=== PATIENT | female | born 1970 | race Caucasian/White ===

== ENCOUNTER 2024-03-26 19:14 | Emergency (ER) | payer OTHER, SELFPAY ==
[2024-03-26 19:16] VITALS: BP 109/88
[2024-03-26 19:31] LABS: Urine Albumin 3+ (Neg - Trace); Urine Bilirubin Negative (Negative); Urine Character Slightly Cloudy (Clear); Urine Color Red; Urine Glucose Negative (Negative); Urine Ketone Trace (Negative); Urine Leukocyte 2+ (Negative); Urine Nitrite Negative (Negative); Urine Occult Blood 4+ (Negative); Urine Specific Gravity 1.015 (<1.030); Urine Urobilinogen Negative (Neg - 1+)
[2024-03-26 19:33] LABS: % Basophils 0.5 % (0-2); % Eosinophils 1.2 % (0-6); % Immature Granulocytes 0.3 % (0-0.5); % Lymphocytes 22.9 % (20.5-51.1); % Monocytes 8.3 % (1.7-9.3); % Neutrophils 66.8 % (42.2-75.2); Absolute Basophils 0.1 10^3/uL (0-0.2); Absolute Eosinophils 0.1 10^3/uL (0-0.7); Absolute Lymphocytes 2.5 10^3/uL (1.2-3.4); Absolute Monocytes 0.9 10^3/uL (0.1-0.6); Absolute Neutrophils 7.2 10^3/uL (1.4-6.5); Hematocrit 37.1 % (37.0-47.0); Hemoglobin 12.9 g/dL (12.0-16.0); Mean Corp Hgb Conc. 34.8 g/dL (33.0-37.0); Mean Corpuscular Hgb 31.2 pg (27.0-31.0); Mean Corpuscular Volume 89.8 fL (81.0-99.0); Mean Platelet Volume 9.1 fL (7.4-10.4); Nucleated Red Blood Cells % 0 %; Platelet Count 342 10^3/uL (130-400); Red Blood Cell Count 4.13 10^6/uL (4.20-5.40); Red Cell Dist. Width 12.8 % (11.5-14.5); White Blood Cell Count 10.7 10^3/uL (4.8-10.8)
[2024-03-26 19:38] LABS: Urine Squamous Cell 0-2 /LPF (Few)
[2024-03-26 19:39] LABS: Urine Red Blood Cell >100 /HPF (0-2)
[2024-03-26 19:58] LABS: ALT (SGPT) 15 U/L (0-35); AST (SGOT) 28 U/L (14-36); Albumin 4.6 g/dl (3.5-5.0); Alkaline Phosphatase 62 U/L (38-126); Blood Urea Nitrogen 14 mg/dl (7-17); Calcium 10.1 mg/dl (8.4-10.2); Carbon Dioxide 29 mmol/L (22-30); Chloride 102 mmol/L (98-107); Glucose 109 mg/dl (70-99); Potassium 4.2 mmol/L (3.5-5.1); Sodium 137 mmol/L (135-145); Total Bilirubin 0.6 mg/dl (0.2-1.3); Total Protein 7.4 g/dl (6.3-8.2); eGFR > 60.00
--- NOTE | 2024-03-26 20:25 | ED.GENMED ---
Addendum entered and electronically signed by Luther Odom PA-C 03/29/24 08:19:
On cefdinir, appropriate per C&S
Original Note:
History of Present Illness
<Tamra Espinal MD, Resident - Last Filed: 03/26/24 22:11>
General
Chief Complaint: Urinary Symptoms
Source: patient
Time Seen by Provider: 03/26/24 20:18
History of Present Illness
History of Present Illness:
The patient is a 53 year old female who presented to ER today complaining from hematuria, frequent urinating, burning sensation while urinating and left lower back pain. The patient reported that she started to have her left lower back pain about 3
months ago and it started to got worsen last 3 days. This morning she was nauseous, had chills in the morning and she saw blood in her urine this afternoon.
Past History
<Tamra Espinal MD, Resident - Last Filed: 03/26/24 22:11>
Past History
ED Past Medical History: Psychiatric (Anxiety ), Other (Trigeminal neuralgia ) and Other (Hyponatremia )
ED Past Surgical History: None and Appendectomy
Social History
Personal:
Living: with family
Phy Exam
<Tamra Espinal MD, Resident - Last Filed: 03/26/24 22:11>
General Physical Exam
General Presentation: well appearing and no apparent distress
General age: appears stated age
General Skin: warm
General Habitus: normal
General Mental: alert
General Hydration: appears well hydrated
ENT Exam
ENT Exam: pharynx normal
Cardiovascular Exam
Cardiovascular Exam: regular rate/rhythm, no edema, no gallop, no JVD and no murmur
Pulmonary Exam
Pulmonary Exam: lungs clear, no respiratory distress, no rales, no crackles, no rhonchi, no stridor and no wheezing
Gastrointestinal Exam
Gastrointestinal Exam: non tender, soft, no pulsatile mass and non distended
Genitourinary Exam Female
Exam Female: other (left lower back area painful to tap test )
Course
<Tamra Espinal MD, Resident - Last Filed: 03/26/24 22:11>
Orders/Labs/Results
Orders:
Orders
03/26/24 19:24
CMP [Comprehensive Metabolic Panel] Urgent
Complete Blood Count/With Diff Urgent
Urinalysis Reflex To Culture Urgent
Date Specimen was Collected: 03/26/24
Time Specimen was Collected: 19:19
Urine Microscopic Reflex Cult Urgent
Urine Culture Urgent
MAC Source: U
Specimen Description:
Date Specimen was Collected: 03/26/24
Time Specimen was Collected: 19:19
03/26/24 20:38
CT Abd/pel Without Iv Or Oral Urgent
Comment:
Reason For Exam: Back pain hematuria
Abnormal Lab Results
03/26/24
19:24
RBC 4.13 L 10^6/uL
(4.20-5.40)
MCH 31.2 H pg
(27.0-31.0)
Absolute Neuts (auto) 7.2 H 10^3/uL
(1.4-6.5)
Absolute Monos (auto) 0.9 H 10^3/uL
(0.1-0.6)
Glucose 109 H mg/dl
(70-99)
Urine Ketones Trace A
(Negative)
Ur Occult Blood Reflex 4+ A
(Negative)
Leukocyte Esterase Rfl 2+ A
(Negative)
Urine RBC >100 A /HPF
(0-2)
Urine Albumin (Reflex) 3+ A
(Neg - Trace)
03/26/24 19:24
03/26/24 19:24
Vital Signs
Initial and Last Documented VS:
Initial Vital Signs
Temp Pulse Resp BP Pulse Ox
99.3 F 92 20 109/88 98
03/26/24 19:16 03/26/24 19:16 03/26/24 19:16 03/26/24 19:16 03/26/24 19:16
Last Documented Vital Signs
Temp Pulse Resp BP Pulse Ox
98.5 F 71 18 117/69 97
03/26/24 21:21 03/26/24 21:21 03/26/24 21:21 03/26/24 21:21 03/26/24 21:21
<Bernard Silvestre MD - Last Filed: 03/26/24 23:10>
Orders/Labs/Results
Orders:
Orders
03/26/24 19:24
CMP [Comprehensive Metabolic Panel] Urgent
Complete Blood Count/With Diff Urgent
Urinalysis Reflex To Culture Urgent
Date Specimen was Collected: 03/26/24
Time Specimen was Collected: 19:19
Urine Microscopic Reflex Cult Urgent
Urine Culture Urgent
MAC Source: U
Specimen Description:
Date Specimen was Collected: 03/26/24
Time Specimen was Collected: 19:19
03/26/24 20:38
CT Abd/pel Without Iv Or Oral Urgent
Comment:
Reason For Exam: Back pain hematuria
Abnormal Lab Results
03/26/24
19:24
RBC 4.13 L 10^6/uL
(4.20-5.40)
MCH 31.2 H pg
(27.0-31.0)
Absolute Neuts (auto) 7.2 H 10^3/uL
(1.4-6.5)
Absolute Monos (auto) 0.9 H 10^3/uL
(0.1-0.6)
Glucose 109 H mg/dl
(70-99)
Urine Ketones Trace A
(Negative)
Ur Occult Blood Reflex 4+ A
(Negative)
Leukocyte Esterase Rfl 2+ A
(Negative)
Urine RBC >100 A /HPF
(0-2)
Urine Albumin (Reflex) 3+ A
(Neg - Trace)
03/26/24 19:24
03/26/24 19:24
Vital Signs
Initial and Last Documented VS:
Initial Vital Signs
Temp Pulse Resp BP Pulse Ox
99.3 F 92 20 109/88 98
03/26/24 19:16 03/26/24 19:16 03/26/24 19:16 03/26/24 19:16 03/26/24 19:16
Last Documented Vital Signs
Temp Pulse Resp BP Pulse Ox
98.5 F 71 18 117/69 97
03/26/24 21:21 03/26/24 21:21 03/26/24 21:21 03/26/24 21:21 03/26/24 21:21
<Tamra Espinal MD, Resident - Last Filed: 03/26/24 22:11>
*Critical Care Note
Total Time (30-74mins, 75-104mins- exclusive of procedures): Not Applicable
<Bernard Silvestre MD - Last Filed: 03/26/24 23:10>
*Radiology
Radiology exam reviewed: radiology read reviewed (No evidence of calculi or obstruction. Nonspecific ileus pattern.)
*Pulse Oximetry
Patient hypoxic: no
<Tamra Espinal MD, Resident - Last Filed: 03/26/24 22:11>
Comment
Comment:
Left lower back area was painful to tap test and her Urine test was positive for red cells. CT Scan Abd/Pelvic without contrast was ordered to check patient`s kidneys for a possible kidney stone.
<Bernard Silvestre MD - Last Filed: 03/26/24 23:10>
Update Note
Update Note:
Patient nontoxic. No evidence of obstructing kidney stone. Probable hemorrhagic cystitis with possible early pyelonephritis. Will cover with antibiotics to follow-up.
ED Attending Note
<Tamra Espinal MD, Resident - Last Filed: 03/26/24 22:11>
-
Portions of this chart may have been created with voice recognition software.� Occasional wrong word or��sound alike� substitutions may have occurred due to the inherent limitations of voice recognition software.
<Bernard Silvestre MD - Last Filed: 03/26/24 23:10>
ED Attending Note
Patient seen and examined by attending physician: Yes
I performed the substantive portion of visit, reviewed & personally made and approve the management plan that is documented in note by myself or LUL.: Yes
I performed a history and physical exam of patient and discussed management with resident, I reviewed resident's note and agree with documented findings and plan of care.: Yes
ED Attending Note:
53-year-old female complaining of urgency frequency slight mild blood in the urine and some diffuse lower back pain. Has some chronic back issues but back pain is different the last 24 hours. Slightly more left-sided. No fever but some chills at
home.
On exam patient is nontoxic and in no distress. Warm and dry. Perfusing well. Stable vital signs. Lungs clear and equal. No CVA tenderness on my exam. Heart regular rate and rhythm. Abdomen soft and nontender. No suprapubic tenderness. She
is warm and dry and perfusing well.
Labs are stable. Urinalysis for significant blood however has 2+ leukocyte Estrace. Micro difficult due to blood. CT scan pending.
Discharge Plan
Departure
Patient Disposition: Home (Routine Discharge)
Date of Disposition: 03/26/24
Time of Disposition: 23:06
Patient with high blood pressure during this ER visit?: No
Discharge Problem:
Hemorrhagic cystitis/early pyelonephriti
Instructions: Urinary Tract Infection, Adult (DC), Blood in the Urine (Hematuria), Adult (DC)
Prescriptions:
New
cefdinir 300 mg capsule
300 mg PO BID 7 Days Qty: 14 0RF
No Action
cephalexin [Keflex] 500 MG capsule
500 mg PO QID Qty: 28 0RF
ibuprofen 600 MG tablet
600 mg PO Q6 Qty: 20 0RF
cyclobenzaprine 10 MG tablet
10 mg PO TIDPRN PRN (Reason: Pain, spasm) Qty: 15 0RF
Referrals:
Corbin Smith MD [Active] - Follow up in 2-3 days
Amber Curiel PA [Family Provider] - Follow up in 2-3 days
Activity Restrictions/Additional Instructions:
Start oral antibiotics tomorrow night
Follow up with urology
Stay well hydrated.
Return with fever/chills/increased pain etc
Interventions
Interventions:
*Risk Screen - Suicide Last Done: 03/26/24 21:21
*General Assessment Last Done: 03/26/24 21:21
*Neglect/Abuse Screening Last Done: 03/26/24 21:21
ED- Fall Risk Assessment Last Done: 03/26/24 20:45
ED-Female Genitourinary Assessment Last Done: 03/26/24 20:45
Discharge Date and Time
Print Language: KITT[place]
[2024-03-26 21:21] VITALS: BP 117/69
[2024-03-26 21:23] VITALS: BMI 27.1
--- NOTE | 2024-03-26 23:24 | ED.GENMED ---
History of Present Illness
General
Chief Complaint: Urinary Symptoms
Time Seen by Provider: 03/26/24 20:18
Past History
Past History
ED Past Medical History: Psychiatric (Anxiety ), Other (Trigeminal neuralgia ) and Other (Hyponatremia )
ED Past Surgical History: None and Appendectomy
Social History
Personal:
Living: with family
Course
Orders/Labs/Results
Orders:
Orders
03/26/24 19:24
CMP [Comprehensive Metabolic Panel] Urgent
Complete Blood Count/With Diff Urgent
Urinalysis Reflex To Culture Urgent
Date Specimen was Collected: 03/26/24
Time Specimen was Collected: 19:19
Urine Microscopic Reflex Cult Urgent
Urine Culture Urgent
MAC Source: U
Specimen Description:
Date Specimen was Collected: 03/26/24
Time Specimen was Collected: 19:19
03/26/24 20:38
CT Abd/pel Without Iv Or Oral Urgent
Comment:
Reason For Exam: Back pain hematuria
Abnormal Lab Results
03/26/24
19:24
RBC 4.13 L 10^6/uL
(4.20-5.40)
MCH 31.2 H pg
(27.0-31.0)
Absolute Neuts (auto) 7.2 H 10^3/uL
(1.4-6.5)
Absolute Monos (auto) 0.9 H 10^3/uL
(0.1-0.6)
Glucose 109 H mg/dl
(70-99)
Urine Ketones Trace A
(Negative)
Ur Occult Blood Reflex 4+ A
(Negative)
Leukocyte Esterase Rfl 2+ A
(Negative)
Urine RBC >100 A /HPF
(0-2)
Urine Albumin (Reflex) 3+ A
(Neg - Trace)
03/26/24 19:24
03/26/24 19:24
Vital Signs
Initial and Last Documented VS:
Initial Vital Signs
Temp Pulse Resp BP Pulse Ox
99.3 F 92 20 109/88 98
03/26/24 19:16 03/26/24 19:16 03/26/24 19:16 03/26/24 19:16 03/26/24 19:16
Last Documented Vital Signs
Temp Pulse Resp BP Pulse Ox
98.5 F 71 18 117/69 97
03/26/24 21:21 03/26/24 21:21 03/26/24 21:21 03/26/24 21:21 03/26/24 21:21
ED Attending Note
-
Portions of this chart may have been created with voice recognition software.� Occasional wrong word or��sound alike� substitutions may have occurred due to the inherent limitations of voice recognition software.
Discharge Plan
Departure
Patient Disposition: Home (Routine Discharge)
Date of Disposition: 03/26/24
Time of Disposition: 23:06
Patient with high blood pressure during this ER visit?: No
Discharge Problem:
Hemorrhagic cystitis/early pyelonephriti
Instructions: Urinary Tract Infection, Adult (DC), Blood in the Urine (Hematuria), Adult (DC)
Prescriptions:
New
cefdinir 300 mg capsule
300 mg PO BID 7 Days Qty: 14 0RF
No Action
cephalexin [Keflex] 500 MG capsule
500 mg PO QID Qty: 28 0RF
ibuprofen 600 MG tablet
600 mg PO Q6 Qty: 20 0RF
cyclobenzaprine 10 MG tablet
10 mg PO TIDPRN PRN (Reason: Pain, spasm) Qty: 15 0RF
Referrals:
Corbin Smith MD [Active] - Follow up in 2-3 days
Amber Curiel PA [Family Provider] - Follow up in 2-3 days
Activity Restrictions/Additional Instructions:
Start oral antibiotics tomorrow night
Follow up with urology
Stay well hydrated.
Return with fever/chills/increased pain etc
Interventions
Interventions:
*Risk Screen - Suicide Last Done: 03/26/24 21:21
*General Assessment Last Done: 03/26/24 21:21
*Neglect/Abuse Screening Last Done: 03/26/24 21:21
ED- Fall Risk Assessment Last Done: 03/26/24 20:45
ED-Female Genitourinary Assessment Last Done: 03/26/24 20:45
Discharge Date and Time
Print Language: CITIZEN OF [place]
[2024-03-26] MEDS: KEFLEX 500 MG PO (23:29)
[2024-03-26 23:30] VITALS: BP 119/68
== END 2024-03-26 23:45 | disposition home or self-care (01) ==
LOC: EMR 19:14
PROVIDERS: Emergency Medicine; EMERGENCY PHYSICIAN Emergency Medicine; FAMILY PHYSICIAN Physician Assistant
DX: N30.91 Cystitis, unspecified with hematuria (principal); F41.9 Anxiety disorder, unspecified; G50.0 Trigeminal neuralgia; E87.1 Hypo-osmolality and hyponatremia; Z90.49 Acquired absence of other specified parts of digestive tract; Z96.641 Presence of right artificial hip joint
CPT/HCPCS: 99284; 74176; 80053; 81003; 81015; 85025; 87086; 87088; 87186

== ENCOUNTER → 2024-04-11 15:28 | Outpatient (REF) | payer OTHER, SELFPAY | LOC: WDC 15:28 | PROVIDERS: ATTENDING PHYSICIAN Nurse Practitioner Family | DX: Z12.31 Encounter for screening mammogram for malignant neoplasm of breast (principal) | CPT/HCPCS: 77063; 77067 ==

== ENCOUNTER 2025-01-03 14:23 | Emergency (ER) | payer OTHER, SELFPAY ==
[2025-01-03 14:33] VITALS: BP 102/65
[2025-01-03 14:53] LABS: % Basophils 0.6 % (0-2); % Eosinophils 1.2 % (0-6); % Immature Granulocytes 0.4 % (0-0.5); % Lymphocytes 36.2 % (20.5-51.1); % Monocytes 7.8 % (1.7-9.3); % Neutrophils 53.8 % (42.2-75.2); Absolute Eosinophils 0.1 10^3/uL (0-0.7); Absolute Lymphocytes 2.5 10^3/uL (1.2-3.4); Absolute Monocytes 0.5 10^3/uL (0.1-0.6); Absolute Neutrophils 3.7 10^3/uL (1.4-6.5); Hematocrit 36.8 % (37.0-47.0); Hemoglobin 12.8 g/dL (12.0-16.0); Mean Corp Hgb Conc. 34.8 g/dL (33.0-37.0); Mean Corpuscular Hgb 31.4 pg (27.0-31.0); Mean Corpuscular Volume 90.2 fL (81.0-99.0); Mean Platelet Volume 9.3 fL (7.4-10.4); Nucleated Red Blood Cells % 0 %; Platelet Count 290 10^3/uL (130-400); Red Blood Cell Count 4.08 10^6/uL (4.20-5.40); Red Cell Dist. Width 12.2 % (11.5-14.5); White Blood Cell Count 6.9 10^3/uL (4.8-10.8)
[2025-01-03 15:09] LABS: ALT (SGPT) 16 U/L (0-35); AST (SGOT) 24 U/L (14-36); Albumin 4.1 g/dl (3.5-5.0); Alkaline Phosphatase 47 U/L (38-126); Blood Urea Nitrogen 14 mg/dl (7-17); Carbon Dioxide 29 mmol/L (22-30); Chloride 103 mmol/L (98-107); Glucose 94 mg/dl (70-99); Potassium 4.2 mmol/L (3.5-5.1); Sodium 139 mmol/L (135-145); Total Bilirubin 0.7 mg/dl (0.2-1.3); Total Protein 6.8 g/dl (6.3-8.2); eGFR > 60.00
[2025-01-03 15:15] LABS: Troponin I < 0.012 ng/ml
[2025-01-03 16:52] VITALS: BP 102/63; BMI 25.1
--- NOTE | 2025-01-03 16:53 | EDRN ---
Dr. Pride currently at the [facility] bedside
[2025-01-03 17:00] VITALS: BP 106/61
--- NOTE | 2025-01-03 17:03 | ED.GENMED ---
History of Present Illness
General
Chief Complaint: Chest Pain
Source: patient
Exam Limitations: none
Time Seen by Provider: 01/03/25 16:53
History of Present Illness
History of Present Illness:
See MDM
Past History
Past History
ED Past Medical History: Psychiatric (Anxiety ), Other (Trigeminal neuralgia ) and Other (Hyponatremia )
ED Past Surgical History: None
Social History
Personal:
Living: with family
Phy Exam
Physical Exam
Physical Exam:
See MDM
Scores
Heart Score for Chest Pain Patients
STEMI patient?: No
History: Slightly or Non-Suspicious
ECG: Nonspecific Repolarization
Age: >45 - <65 years
Risk Factors: 1 or 2 Risk Factors
Troponin: </= Normal Limit
Heart Score for Chest Pain Patients: 3
Heart Score Risk: 2.5% MACE over next 6 weeks
Course
Orders/Labs/Results
Orders:
Orders
01/03/25 14:24
Electrocardiogram (*1) Urgent
Reason for Study: Chest Pain
EKG- Treatment ONCE
01/03/25 14:41
CMP [Comprehensive Metabolic Panel] Urgent
Complete Blood Count/With Diff Urgent
Troponin I Urgent
01/03/25 17:01
CR Chest - 2 Views Urgent
Comment:
Reason For Exam: intermittent chest pain
Abnormal Lab Results
01/03/25
14:41
RBC 4.08 L 10^6/uL
(4.20-5.40)
Hct 36.8 L %
(37.0-47.0)
MCH 31.4 H pg
(27.0-31.0)
01/03/25 14:41
01/03/25 14:41
Vital Signs
Initial and Last Documented VS:
Initial Vital Signs
Temp Pulse Resp BP Pulse Ox
97.9 F 63 16 102/65 98
01/03/25 14:33 01/03/25 14:33 01/03/25 14:33 01/03/25 14:33 01/03/25 14:33
Last Documented Vital Signs
Temp Pulse Resp BP Pulse Ox
97.6 F 57 10 106/61 95
01/03/25 16:52 01/03/25 17:15 01/03/25 17:15 01/03/25 17:00 01/03/25 17:30
MDM/Problems Addressed
Differential Diagnosis Includes:
HPI and MDM Narrative:
54-year-old female presenting with intermittent chest discomfort. Patient states symptoms have worsened since last night. She noticed the symptoms when she was laying down in bed. She denies any concern for indigestion. Since then, she has
intermittent episodes of dizziness and chest tightness. They last for about 30 seconds or so. Sometimes, it is worse when she walks. Sometimes it happens at rest and sometimes she exerts herself with no concerns.
Blood work and EKG done prior to my assessment. Troponin negative. Given that there is no consistency with exertion, doubt ACS. EKG is nonischemic as well. Will obtain chest x-ray but otherwise discussed follow-up with cardiology
Physical exam
General: Well appearing and non-toxic
HEENT: protecting airway
Neck: appears supple
CV: No evidence of cyanosis. Regular rate and rhythm
Resp: No accessory muscle use. Lungs clear
Abd: Non-distended
Extremities: No deformities. No leg edema or unilateral tenderness
Neuro: alert
Psych: Normal affect
Skin: Intact
Problems Addressed including Acute and Chronic Conditions affecting care:
1. Intermittent chest pressure
Acuity: acute
Prognosis: stable
Details: Given that symptoms are not consistently related to exertion, doubt ACS
Updates
Chest x-ray clear. Will place on cardiac callback tracker. Patient feels comfortable going home
Differential Diagnosis (but not limited to): Noncardiac chest pain, gastritis, anxiety
Testing considered: D-dimer but no clinical evidence of DVT and she is neither tachycardic nor hypoxic
Drug therapy (if applicable): OTC meds, please see d/c instruction regarding Rx drugs
Amount and/or Complexity of Data Reviewed
Clinical info obtained from: Patient
External data reviewed: N/A
Labs I independently reviewed (but not limited to): Troponin normal
Radiology: X-ray independently reviewed: Chest x-ray clear
Pulse Ox: not hypoxic
EKG independently reviewed: Sinus rhythm, normal axis, no STEMI
Journeyman Pressman: sinus rhythm
Critical Care: N/A
Risk of Complication:
Social Determinants of health: Good social support
Discussed with other providers: N/A
Escalation of Care includes Admit/Obs: After being observed in the Emergency Department, pt stable for discharge.
Occasional wrong word or 'sound a like' substitutions may have occurred due to the inherent limitations of voice recognition software. Read the chart carefully and recognize, using context, where substitutions have occurred.
*Critical Care Note
Total Time (30-74mins, 75-104mins- exclusive of procedures): Not Applicable
ED Attending Note
-
Portions of this chart may have been created with voice recognition software.� Occasional wrong word or��sound alike� substitutions may have occurred due to the inherent limitations of voice recognition software.
Discharge Plan
Departure
Patient Disposition: Home (Routine Discharge)
Date of Disposition: 01/03/25
Time of Disposition: 18:16
Patient with high blood pressure during this ER visit?: No
Discharge Problem:
Chest discomfort
Instructions: Chest Pain DCA Follow Up
Prescriptions:
No Action
ibuprofen 600 MG tablet
600 mg PO Q6 Qty: 20 0RF
cyclobenzaprine 10 MG tablet
10 mg PO TIDPRN PRN (Reason: Pain, spasm) Qty: 15 0RF
Referrals:
Aleah Edmonds CRNP [Family Provider] -
Pete Pederson MD [Active] -
Activity Restrictions/Additional Instructions:
Please return for any worsening symptoms.
You may return at any time if you have further concerns.
Please follow up with your doctor at the first available appointment, preferably this week.
You were placed on the cardiac callback tracker. Someone from their office should call you in the next few days. If you do not hear from them in the next few days, please give them a call.
Thank you for choosing [facility].
Interventions
Interventions:
*Risk Screen - Suicide Last Done: 01/03/25 14:33
*General Assessment Last Done: 01/03/25 16:52
*Neglect/Abuse Screening Last Done: 01/03/25 14:33
*ED- Fall Risk Assessment Last Done: 01/03/25 16:52
*ED COVID-19 Vaccine History Last Done: 01/03/25 16:52
ED- Cardiac Assessment Last Done: 01/03/25 16:52
Discharge Date and Time
Print Language: [id number]
== END 2025-01-03 18:25 | disposition home or self-care (01) ==
LOC: EMR 14:23
PROVIDERS: EMERGENCY PHYSICIAN Student in an Organized Health Care Education/Training Program; FAMILY PHYSICIAN Nurse Practitioner Family
DX: R07.89 Other chest pain (principal); R42 Dizziness and giddiness
CPT/HCPCS: 99285; 71046; 80053; 84484; 85025; 93005

== ENCOUNTER → 2025-03-25 15:28 | Outpatient (REF) | payer OTHER, SELFPAY | LOC: RAD 15:28 | PROVIDERS: ATTENDING PHYSICIAN Nurse Practitioner Obstetrics & Gynecology; FAMILY PHYSICIAN Nurse Practitioner Family | DX: N95.0 Postmenopausal bleeding (principal) | CPT/HCPCS: 76830 ==

== ENCOUNTER → 2025-03-26 08:10 | Outpatient (REF) | payer OTHER, SELFPAY | LOC: RCS 08:10 | PROVIDERS: ATTENDING PHYSICIAN Internal Medicine Cardiovascular Disease; FAMILY PHYSICIAN Nurse Practitioner Family | DX: R07.89 Other chest pain (principal) | CPT/HCPCS: 93306 ==

== ENCOUNTER → 2025-05-20 12:42 | Outpatient (REF) | payer OTHER, SELFPAY | LOC: WDC 12:42 | PROVIDERS: ATTENDING PHYSICIAN Nurse Practitioner Obstetrics & Gynecology; FAMILY PHYSICIAN Physician Assistant | DX: Z12.31 Encounter for screening mammogram for malignant neoplasm of breast (principal) | CPT/HCPCS: 77063; 77067 ==